=== PATIENT | female | born 1965 | race Caucasian/White ===

== ENCOUNTER 2020-08-07 10:12 | Inpatient (IN) | payer MEDICAID ==
[2020-08-02 16:40] LABS: BASOPHILS # (AUTO) 0.1 X10'3 (0-0.2); BASOPHILS % (AUTO) 1.1 % (0-1); EOSINOPHILS # (AUTO) 0.2 X10'3 (0-0.9); EOSINOPHILS % (AUTO) 2.4 % (0-6); LYMPHOCYTES # (AUTO) 1.4 X10'3 (1.1-4.8); LYMPHOCYTES % (AUTO) 21.3 % (21-51); MEAN CORPUSCULAR HEMOGLOBIN 29.2 PG (27.0-31.0); MEAN CORPUSCULAR HGB CONC 33.3 g/dL (33.0-36.5); MEAN CORPUSCULAR VOLUME 87.7 FL (78-98); MEAN PLATELET VOLUME 6.8 FL (7.4-10.4); MONOCYTES # (AUTO) 0.6 X10'3 (0-0.9); MONOCYTES % (AUTO) 9.2 % (2-12); NEUTROPHILS # (AUTO) 4.3 X10'3 (1.8-7.7); PRE OP HEMATOCRIT 42.8 % (35.0-45.0); PRE OP HEMOGLOBIN 14.2 g/dL (12.0-16.0); PRE OP PLATELET COUNT 378 X10'3 (140-440); RED BLOOD COUNT 4.88 X10'6 (4.20-5.60); RED CELL DISTRIBUTION WIDTH 13.8 % (11.5-14.5)
[2020-08-02 16:46] LABS: PRE OP PROTIME 10.7 SECONDS (9.0-12.0)
[2020-08-02 16:47] LABS: ALBUMIN 4.1 G/DL (3.4-5.0); ALKALINE PHOSPHATASE 93 IU/L (46-116); BLOOD UREA NITROGEN 18 MG/DL (7-18); BUN/CREATININE RATIO 24.3 (6.6-38.0); CALCIUM 10.4 MG/DL (8.5-10.1); CHLORIDE 105 MMOL/L (99-107); CREATININE 0.74 MG/DL (0.40-0.90); PRE OP ALT 23 U/L (30-65); PRE OP ANION GAP 9 (8-16); PRE OP AST 16 U/L (10-37); PRE OP BILIRUB, TOTAL 0.2 MG/DL (0.0-1.0); PRE OP GLUCOSE 98 MG/DL (70-104); PRE OP POTASSIUM 4.2 MMOL/L (3.4-5.1); PRE OP SODIUM 142 MMOL/L (135-145); TOTAL CARBON DIOXIDE 28.5 MMOL/L (24-32); TOTAL PROTEIN 8.4 G/DL (6.4-8.2); eGFR 82 ML/MIN
[2020-08-07] VITALS (24 sets, daily range): BP systolic 90–127; BP diastolic 57–85
[~2020-08-07] VITALS: Ht 177.8 cm; Wt 68.0 kg
[2020-08-07] MEDS: ceFAZolin/D5W- 1GM premix 50 ML IV SCH ×3 (08:00→20:05)
[~2020-08-07 10:12] MED LIST: HYDROmorphone 1 mg/ml syringe IV PRN; HYDROmorphone inj. 0.5 MG/0.5 ML DISP.SYRIN IV PRN; TRAM50TA2 PO; VANCOMYCIN INJ 1000 MG in NORMAL SALINE 250ml IV.SOLN IV ONE; acetaminophen 325mg tablet PO ONE; acetaminophen 325mg tablet PO PRN; bisacodyl 10mg suppository rectal RC PRN; ceFAZolin 2gm in dextrose, iso 50 ML IV ONE; celeCOXIB 100mg capsule PO ONE; diphenhydrAMINE 25mg capsule PO PRN; famotidine 20mg tablet PO ONE; gabapentin 300mg capsule PO ONE; magnesium hydroxide 30ml (MOM) UD suspension PO PRN; metoclopramide 5 mg/ml inj IV ONE; ondansetron/PF 4mg/2ml inj IV PRN; oxyCODONE SR 10mg (sust. release) tab -2 tabs (20mg) PO ONE; tranexamic acid 1gm/0.7% sal. 100 ML IV ONE; vancomycin/NS 1 GM ADD-VANTAGE 250 ML IV SCH
[2020-08-07] MEDS: ringers solution, lacted 1,000 ML IV SCH ×4 (11:15→17:47)
[2020-08-07] MEDS ORDERED: vancomycin 1,000mg inj ONE (11:54)
[2020-08-07] MEDS ORDERED: fentaNYL/PF 50MCG/1 ML 2ML syringe ONE (12:25)
[2020-08-07] MEDS ORDERED: MIDAZolam 5mg/5ml vial ONE (12:39)
[2020-08-07] MEDS ORDERED: ketorolac trometh. 30mg/ml inj. ONE (12:45)
[2020-08-07] MEDS ORDERED: epiNEPHrine 1 mg/ml inj ONE (12:47)
[2020-08-07] MEDS ORDERED: cloNIDine hcl/PF 100mcg/ml inj ONE (12:47)
[2020-08-07] MEDS ORDERED: ROPIVAcaine 0.5% (5mg/ml) 30ml vial ONE ×2 (12:48→12:53)
[2020-08-07] MEDS ORDERED: LIDOcaine 1%/PF 5ML 10 MG/ML VIAL ONE (13:35)
[2020-08-07] MEDS ORDERED: diphenhydrAMINE 50 mg/ml inj ONE (13:35)
[2020-08-07] MEDS ORDERED: propofol inj 20 ML IV ONE (13:35)
[2020-08-07] MEDS ORDERED: ringers solution, lacted 1,000 ML IV SCH (13:40)
[2020-08-07] MEDS ORDERED: proCHLORperazine 10 MG/2 ml inj IV PRN (13:40)
[2020-08-07] MEDS ORDERED: morphine 4 MG/ML inj SYRINge IV PRN (13:40)
[2020-08-07] MEDS ORDERED: ondansetron/PF 4mg/2ml inj IV PRN (13:40)
[2020-08-07] MEDS ORDERED: morphine 2 MG/ML inj. syringe IV PRN (13:40)
[2020-08-07] MEDS ORDERED: meperidine/PF 25mg/ml syringe IV PRN ×3 (13:40)
[2020-08-07] MEDS ORDERED: meperidine/PF 25mg/ml syringe ONE (13:58)
--- NOTE | 2020-08-07 14:05 | NUR ---
ADMITTED TO PACU FROM OR ACCOMPANIED BY ANESTHESIA. INTIAL PHYSICAL ASSESSMENT DONE AND RECORDED. REPORT RECEIVED FROM ANESTHESIA.
--- NOTE | 2020-08-07 16:20 | NUR ---
PACU DISCHARGE CRITERIA MET, REPORT GIVEN TO FLOOR. DENIES PAIN OR DISCOMFORT, TRANSFERRED TO ROOM IN STABLE GOOD CONDITION.
[2020-08-07] MEDS: HYDROcodone/acetaminophen 10/325mg tab PO PRN (16:59)
[2020-08-07] MEDS ORDERED: tranexamic acid 1gm/0.7% sal. 100 ML IV ONE (17:00)
--- NOTE | 2020-08-07 19:24 | NUR ---
Problems reprioritized. Patient report given, questions answered & plan of care reviewed with Karlos JUAN.
[2020-08-07] MEDS: sennosides 8.6mg tablet PO SCH (19:32)
[2020-08-07] MEDS: potassium cl 20mEq in 1/2 NS 1,000 ML IV SCH ×3 (19:33→23:00)
[2020-08-07] MEDS: gabapentin 300mg capsule PO SCH (20:05)
[2020-08-07] MEDS: ascorbic acid 500mg tablet PO SCH (20:05)
--- NOTE | 2020-08-07 20:56 | NUR ---
pt req to wait for pain meds and try gabapentin first
--- NOTE | 2020-08-07 21:25 | NUR ---
ambulated to BR. pt did very well. knee brace intact. pt feels that left leg is now shorter than right leg. will mention to in am.
[2020-08-08] MEDS: HYDROcodone/acetaminophen 10/325mg tab PO PRN ×4 (00:19→19:29)
[2020-08-08] MEDS: potassium cl 20mEq in 1/2 NS 1,000 ML IV SCH ×3 (00:20→21:14)
--- NOTE | 2020-08-08 00:31 | NUR ---
pt has walker, 2 steps into bedroom. living with roommate who has dog and 4 year old and "clutter" in [place]. requesting rehab - educated on qualifications - pt ok with going home if needed, not sure if home PT or home health is availbale in [place].
[2020-08-08] MEDS: ceFAZolin/D5W- 1GM premix 50 ML IV SCH (03:35)
[2020-08-08 04:00] VITALS: BP 99/58
--- NOTE | 2020-08-08 06:23 | NUR ---
reported to days. noted pt ready to work with PT.
--- NOTE | 2020-08-08 06:34 | NUR ---
Patient in room [facility]. I have received report from AKBAR JUAN and had the opportunity to ask questions and assume patient care.
[2020-08-08 07:04] LABS: BASOPHILS % (AUTO) 0.5 % (0-1); EOSINOPHILS # (AUTO) 0.2 X10'3 (0-0.9); EOSINOPHILS % (AUTO) 2.4 % (0-6); HEMOGLOBIN 11.4 g/dl (12.0-16.0); LYMPHOCYTES # (AUTO) 1.3 X10'3 (1.1-4.8); LYMPHOCYTES % (AUTO) 17.5 % (21-51); MEAN CORPUSCULAR HEMOGLOBIN 29.5 PG (27.0-31.0); MEAN CORPUSCULAR HGB CONC 33.5 g/dL (33.0-36.5); MEAN CORPUSCULAR VOLUME 88.2 FL (78-98); MEAN PLATELET VOLUME 7.1 FL (7.4-10.4); MONOCYTES # (AUTO) 0.8 X10'3 (0-0.9); MONOCYTES % (AUTO) 11.3 % (2-12); NEUTROPHILS % (AUTO) 68.3 % (42-75); PLATELET COUNT 282 X10'3 (140-440); RED BLOOD COUNT 3.86 X10'6 (4.20-5.60); RED CELL DISTRIBUTION WIDTH 14.2 % (11.5-14.5); WHITE BLOOD COUNT 7.3 X10'3 (4.5-11.0)
[2020-08-08 07:57] LABS: ANION GAP 6 (8-16); CHLORIDE 108 MMOL/L (99-107); POTASSIUM 4.3 MMOL/L (3.5-5.1); SODIUM 143 MMOL/L (135-145); TOTAL CARBON DIOXIDE 29.4 MMOL/L (24-32)
[2020-08-08 08:00] VITALS: BP 115/70
[2020-08-08] MEDS: ascorbic acid 500mg tablet PO SCH ×2 (09:32→21:06)
[2020-08-08] MEDS: gabapentin 300mg capsule PO SCH ×3 (09:33→21:06)
[2020-08-08] MEDS: multivitamins, therapeutics tablet PO SCH (09:33)
[2020-08-08] MEDS: aspirin 325mg tablet PO SCH (09:39)
[2020-08-08 11:00] VITALS: BP 112/75
--- NOTE | 2020-08-08 16:00 | NUR ---
Joint Replacement Consult: Pt seen by LES for written/verbal high protein ed w/ RD contact information s/p L CITLALLI. Pt is agreeable to [facility]; notified. To provide initial assessment on above date. Addendum: 08/08/20 at [address] Amended: Links added.
--- NOTE | 2020-08-08 18:24 | NUR ---
Problems reprioritized. Patient report given, questions answered & plan of care reviewed with MADISON JUAN.
[2020-08-08 20:00] VITALS: BP 121/70
[2020-08-08] MEDS: celeCOXIB 100mg capsule PO SCH (21:05)
[2020-08-08] MEDS: sennosides 8.6mg tablet PO SCH (21:06)
[2020-08-09] VITALS: BP 101/61
[2020-08-09] MEDS: HYDROcodone/acetaminophen 10/325mg tab PO PRN ×5 (01:16→20:10)
--- NOTE | 2020-08-09 06:58 | NUR ---
Patient in room [facility]. I have received report from Sarah JUAN and had the opportunity to ask questions and assume patient care.
[2020-08-09 07:12] LABS: BASOPHILS % (AUTO) 0.5 % (0-1); EOSINOPHILS # (AUTO) 0.2 X10'3 (0-0.9); EOSINOPHILS % (AUTO) 2.8 % (0-6); HEMATOCRIT 35.3 % (35.0-45.0); HEMOGLOBIN 11.8 g/dl (12.0-16.0); LYMPHOCYTES # (AUTO) 1.6 X10'3 (1.1-4.8); MEAN CORPUSCULAR HEMOGLOBIN 29.4 PG (27.0-31.0); MEAN CORPUSCULAR HGB CONC 33.5 g/dL (33.0-36.5); MEAN CORPUSCULAR VOLUME 87.7 FL (78-98); MEAN PLATELET VOLUME 7.5 FL (7.4-10.4); MONOCYTES # (AUTO) 0.9 X10'3 (0-0.9); MONOCYTES % (AUTO) 11.1 % (2-12); NEUTROPHILS # (AUTO) 5.6 X10'3 (1.8-7.7); NEUTROPHILS % (AUTO) 66.6 % (42-75); PLATELET COUNT 279 X10'3 (140-440); RED BLOOD COUNT 4.03 X10'6 (4.20-5.60); RED CELL DISTRIBUTION WIDTH 13.7 % (11.5-14.5); WHITE BLOOD COUNT 8.5 X10'3 (4.5-11.0)
[2020-08-09] MEDS: JUVEN Smoothie Arginine/Glut./Ca2+Bmb (Juven 19.3pkt) 240ml cup PO SCH ×2 (07:30→12:30)
[2020-08-09 08:00] VITALS: BP 99/59
[2020-08-09] MEDS: ascorbic acid 500mg tablet PO SCH (08:00)
[2020-08-09] MEDS: gabapentin 300mg capsule PO SCH ×2 (08:00→13:00)
[2020-08-09] MEDS: celeCOXIB 100mg capsule PO SCH (08:00)
[2020-08-09] MEDS: multivitamins, therapeutics tablet PO SCH (08:00)
[2020-08-09] MEDS: aspirin 325mg tablet PO SCH (08:30)
[2020-08-09 12:00] VITALS: BP 109/64
[2020-08-09 18:00] VITALS: BP 120/65
--- NOTE | 2020-08-09 18:04 | NUR ---
Problems reprioritized. Patient report given, questions answered & plan of care reviewed with Trinh JUAN.
--- NOTE | 2020-08-09 18:30 | NUR ---
Problems reprioritized. Patient report given, questions answered & plan of care reviewed with Trinh JUAN.
--- NOTE | 2020-08-09 18:40 | NUR ---
Patient in room [facility]. I have received report from Miguelina JUAN and had the opportunity to ask questions and assume patient care.
--- NOTE | 2020-08-09 20:25 | NUR ---
Pt wheeled downstairs by staff member with all of belongings including ice packs, knee brace, IS, extra MICHELLE dressing, FWW. Wallet was given to pt from the hospital safe. Pt was in no distress and receptive to her D/C instructions. Questions were answered and addressed accordingly.
== END 2020-08-09 20:15 | disposition home or self-care (01) | DRG 301 ==
LOC: PAS 10:12 → SUR 3N 10:13
PROVIDERS: ADMIT Orthopaedic Surgery; ATTEND Orthopaedic Surgery
PROC: 0SRB06Z Replacement of Left Hip Joint with Oxidized Zirconium on Polyethylene Synthetic Substitute, Open Approach (ICD-10-PCS; principal; 2020-08-07 12:21)
DX: M16.12 Unilateral primary osteoarthritis, left hip (principal); M87.052 Idiopathic aseptic necrosis of left femur; F32.9 Major depressive disorder, single episode, unspecified; Z86.16 Personal history of COVID-19; Z90.710 Acquired absence of both cervix and uterus; Z79.899 Other long term (current) drug therapy
CPT/HCPCS: 36415; 72170; 80051; 80053; 82948; 85025; 85610; 85730; 86885; 86900; 86901; 87081; 93005; 97110; 97116; 97161; 97530; 97535; A7000; C1776; G0378; J0171; J0690; J0735; J1200; J1885; J2175; J2250; J2704; J2765; J2795; J3010; J3370; J3480; J7120

== ENCOUNTER 2021-10-27 10:01 | Inpatient (IN) | payer MEDICAID ==
[2021-10-27] VITALS (13 sets, daily range): BP systolic 92–156; BP diastolic 55–75
[~2021-10-27] VITALS: Ht 177.8 cm; Wt 65.9 kg
[2021-10-27] MEDS ORDERED: NO HOME MEDS (10:24)
[2021-10-27] MEDS ORDERED: morphine 4 MG/ML inj SYRINge IV ONE ×2 (11:30→13:25)
[2021-10-27] MEDS ORDERED: cloNIDine hcl/PF 100mcg/ml inj ONE (14:02)
[2021-10-27] MEDS ORDERED: sevoflurane 250ml liquid IH ONE (14:03)
[2021-10-27] MEDS ORDERED: magnesium Cl slow-release 64mg tablet PO PRN (14:05)
[2021-10-27] MEDS ORDERED: mag hydrox/Alum hydrox/simeth 30ml oral suspension PO PRN (14:05)
[2021-10-27] MEDS ORDERED: potassium CL 10mEq/100ml bag 100 ML IV PRN (14:05)
[2021-10-27] MEDS ORDERED: POTASSIUM BICARB 20meq eff tab 20 MEQ TABLET.EFF PO PRN ×2 (14:05)
[2021-10-27] MEDS ORDERED: magnesium 2GM in 50ml NS 50 ML IV PRN (14:05)
[2021-10-27] MEDS ORDERED: magnesium hydroxide 30ml (MOM) UD suspension PO PRN (14:05)
[2021-10-27] MEDS ORDERED: magnesium 4gm in 100ml NS 100 ML IV PRN (14:05)
[2021-10-27] MEDS ORDERED: labetalol 20mg/4ml (5mg/ml) syringe IV PRN (14:05)
[2021-10-27] MEDS ORDERED: meperidine/PF 25mg/ml syringe IV PRN ×3 (14:05)
[2021-10-27] MEDS ORDERED: morphine 4 MG/ML inj SYRINge IV PRN (14:05)
[2021-10-27] MEDS ORDERED: ondansetron/PF 4mg/2ml inj IV PRN ×2 (14:05)
[2021-10-27] MEDS ORDERED: ringers solution, lacted 1,000 ML IV SCH (14:05)
[2021-10-27] MEDS ORDERED: proCHLORperazine 10 MG/2 ml inj IV PRN (14:05)
[2021-10-27] MEDS ORDERED: acetaminophen 325mg tablet PO PRN (14:05)
[2021-10-27] MEDS ORDERED: morphine 2 MG/ML inj. syringe IV PRN ×3 (14:05)
[2021-10-27] MEDS ORDERED: hydrALAZINE 20mg/ml inj. IV PRN (14:05)
[2021-10-27] MEDS ORDERED: acetaminophen 1,000mg/100ml IV 100 ML IV PRN (14:05)
[2021-10-27 14:07] LABS: APTT 26 SECONDS (22-32)
[2021-10-27] MEDS ORDERED: fentaNYL /PF 50mcg/ml 5ml ampule ONE (14:10)
[2021-10-27] MEDS ORDERED: midazolam 1 mg/ML 2ml injection ONE (14:10)
[2021-10-27 14:12] LABS: ALANINE AMINOTRANSFERASE 18 U/L (12-78); ALBUMIN 3.7 G/DL (3.4-5.0); ALKALINE PHOSPHATASE 127 IU/L (46-116); ANION GAP 7 (8-16); ASPARTATE AMINO TRANSFERASE 15 U/L (10-37); BILIRUBIN,TOTAL 0.5 MG/DL (0.1-1.0); BLOOD UREA NITROGEN 11 MG/DL (7-18); BUN/CREATININE RATIO 14.7 (6.6-38.0); CALCIUM 9.6 MG/DL (8.5-10.1); CHLORIDE 105 MMOL/L (99-107); CREATININE 0.75 MG/DL (0.40-0.90); GLUCOSE 90 MG/DL (70-104); MAGNESIUM 1.7 MG/DL (1.5-2.4); POTASSIUM 3.8 MMOL/L (3.5-5.1); SODIUM 139 MMOL/L (135-145); TOTAL CARBON DIOXIDE 26.6 MMOL/L (24-32); TOTAL PROTEIN 7.3 G/DL (6.4-8.2); eGFR 80 ML/MIN
[2021-10-27 14:13] LABS: BASOPHILS % (AUTO) 0.5 % (0-1); EOSINOPHILS % (AUTO) 0.2 % (0-6); HEMATOCRIT 43.1 % (35.0-45.0); HEMOGLOBIN 14.4 g/dl (12.0-16.0); LYMPHOCYTES # (AUTO) 1.1 X10'3 (1.1-4.8); LYMPHOCYTES % (AUTO) 12.9 % (21-51); MEAN CORPUSCULAR HEMOGLOBIN 28.4 PG (27.0-31.0); MEAN CORPUSCULAR HGB CONC 33.3 g/dL (33.0-36.5); MEAN CORPUSCULAR VOLUME 85.3 FL (78-98); MEAN PLATELET VOLUME 7.2 FL (7.4-10.4); MONOCYTES # (AUTO) 0.6 X10'3 (0-0.9); MONOCYTES % (AUTO) 6.4 % (2-12); NEUTROPHILS # (AUTO) 6.9 X10'3 (1.8-7.7); PLATELET COUNT 293 X10'3 (140-440); RED BLOOD COUNT 5.05 X10'6 (4.20-5.60); RED CELL DISTRIBUTION WIDTH 14.3 % (11.5-14.5); WHITE BLOOD COUNT 8.7 X10'3 (4.5-11.0)
[2021-10-27] MEDS ORDERED: ROPIVAcaine 0.5% (5mg/ml) 30ml vial ONE (14:58)
[2021-10-27] MEDS ORDERED: ceFAZolin 1000mg inj ONE ×2 (14:58)
[2021-10-27] MEDS ORDERED: 0.9 % SODIUM CHLORIDE 10 ML VIAL ONE ×2 (14:58)
[2021-10-27] MEDS ORDERED: LIDOcaine 2% (20mg/ml) 5ml vial ONE (14:58)
[2021-10-27] MEDS ORDERED: propofol inj 20 ML IV ONE (14:58)
[2021-10-27] MEDS ORDERED: dexamethasone sod phosphate 4mg/ml inj. ONE (14:59)
[2021-10-27] MEDS ORDERED: ondansetron/PF 4mg/2ml inj ONE (14:59)
--- NOTE | 2021-10-27 16:58 | NUR ---
Received from OR via , accompanied by Anesthesiologist DR SOLIS and report given by Anesthesiolgist. PT AWAKE, ALERT, +CM LEFT LE, SLINT WITH DIEGO CD, 18G TO RIGHT AC LR 100MLS/HR,VSS, SCD'S.
--- NOTE | 2021-10-27 17:06 | NUR ---
Patient in room [facility] 4012B. I have received report from DRAKE RUIZ FORM RECOVERY and had the opportunity to ask questions and assume patient care.
--- NOTE | 2021-10-27 17:29 | NUR ---
Report called to receiving nurse. Transferred via BED Belongings . Special Issues communicated to receiving nurse FRANCOIS JUAN. PT IS AWAKE, ALERT, ORIENTED, ABLE TO WIGGLE TOES ON LEFT FOOT, SKIN WARM, MILD PAIN AFTER IV DEMEROL AND TYLENOL, SPINT/DIEGO CD ON LEFT LE, IV PATENT. PT MEETS DISCHARGE CRITERIA.
--- NOTE | 2021-10-27 18:27 | NUR ---
Problems reprioritized. Patient report given, questions answered & plan of care reviewed with DRAKE WALKER.
[2021-10-27] MEDS ORDERED: HYDROcodone/acetaminophen 10/325mg tab PO PRN (19:05)
[2021-10-27] MEDS: docusate sod 100mg capsule PO SCH (20:00)
[2021-10-27] MEDS: K and/or MAG REPLACEMENT MC SCH (20:00)
[2021-10-27] MEDS: normal saline 1000ml 1,000 ML IV SCH (20:49)
[2021-10-27] MEDS ORDERED: HYDROcodone/acetaminophen 5mg/325mg tablet PO PRN (20:50)
[2021-10-28] MEDS: normal saline 1000ml 1,000 ML IV SCH ×3 (00:05→19:26)
[2021-10-28] MEDS: ceFAZolin/D5W- 1GM premix 50 ML IV SCH ×3 (01:14→16:01)
[2021-10-28] MEDS: HYDROcodone/acetaminophen 10/325mg tab PO PRN ×4 (01:53→20:17)
[2021-10-28 02:00] VITALS: BP 97/61
[2021-10-28 06:00] VITALS: BP 95/70
[2021-10-28 07:00] LABS: BASOPHILS % (AUTO) 0 % (0-1); EOSINOPHILS % (AUTO) 0 % (0-6); HEMOGLOBIN 11.9 g/dl (12.0-16.0); LYMPHOCYTES # (AUTO) 0.6 X10'3 (1.1-4.8); LYMPHOCYTES % (AUTO) 5.2 % (21-51); MEAN CORPUSCULAR HEMOGLOBIN 28.1 PG (27.0-31.0); MEAN CORPUSCULAR HGB CONC 33.1 g/dL (33.0-36.5); MEAN CORPUSCULAR VOLUME 84.9 FL (78-98); MEAN PLATELET VOLUME 7.2 FL (7.4-10.4); MONOCYTES # (AUTO) 0.7 X10'3 (0-0.9); MONOCYTES % (AUTO) 6.1 % (2-12); NEUTROPHILS # (AUTO) 9.9 X10'3 (1.8-7.7); NEUTROPHILS % (AUTO) 88.7 % (42-75); PLATELET COUNT 264 X10'3 (140-440); RED BLOOD COUNT 4.24 X10'6 (4.20-5.60); RED CELL DISTRIBUTION WIDTH 14.2 % (11.5-14.5); WHITE BLOOD COUNT 11.2 X10'3 (4.5-11.0)
[2021-10-28 07:26] LABS: ANION GAP 7 (8-16); BLOOD UREA NITROGEN 10 MG/DL (7-18); BUN/CREATININE RATIO 13.3 (6.6-38.0); CALCIUM 8.7 MG/DL (8.5-10.1); CHLORIDE 107 MMOL/L (99-107); CREATININE 0.75 MG/DL (0.40-0.90); GLUCOSE 130 MG/DL (70-104); POTASSIUM 4.3 MMOL/L (3.5-5.1); SODIUM 141 MMOL/L (135-145); TOTAL CARBON DIOXIDE 26.7 MMOL/L (24-32); eGFR 80 ML/MIN
[2021-10-28] MEDS: docusate sod 100mg capsule PO SCH ×2 (08:00→20:00)
[2021-10-28] MEDS: K and/or MAG REPLACEMENT MC SCH ×2 (08:00→20:00)
[2021-10-28] MEDS: enoxaparin 40mg/0.4ml syringe SUBCUT SCH (08:22)
[2021-10-28 10:00] VITALS: BP 98/56
[2021-10-28] MEDS ORDERED: ketorolac tromethamine 15mg/ml inj. IV PRN (11:15)
--- NOTE | 2021-10-28 11:28 | NUR ---
I spoke with Dr. Ferrera about patient pain and said it's okay to order Toradol 30mg q8hr.
[2021-10-28] MEDS: ketorolac trometh. 30mg/ml inj. IV PRN ×2 (11:35→19:26)
[2021-10-28 14:00] VITALS: BP_SYST 152; BP_SYST 90; BP_DIAS 52; BP_DIAS 76
[2021-10-28 18:00] VITALS: BP 103/68
--- NOTE | 2021-10-28 18:32 | NUR ---
Patient in room [facility] 4012B. I have received report from DRAKE WALKER and had the opportunity to ask questions and assume patient care. Addendum: 10/28/21 at 1833 by Анна Andrews RN REPORT TAKEN AT [id number] NOT [id number]
--- NOTE | 2021-10-28 18:33 | NUR ---
Problems reprioritized. Patient report given, questions answered & plan of care reviewed with DRAKE ALEGRE.
[2021-10-28 22:00] VITALS: BP 97/62
[2021-10-29] MEDS: HYDROcodone/acetaminophen 10/325mg tab PO PRN ×3 (04:34→13:17)
[2021-10-29] MEDS: normal saline 1000ml 1,000 ML IV SCH (04:35)
--- NOTE | 2021-10-29 06:15 | NUR ---
Problems reprioritized. Patient report given, questions answered & plan of care reviewed with DRAKE LOUISE.
[2021-10-29 06:30] VITALS: BP 106/75
[2021-10-29 06:34] LABS: ANION GAP 8 (8-16); BLOOD UREA NITROGEN 13 MG/DL (7-18); BUN/CREATININE RATIO 17.8 (6.6-38.0); CALCIUM 8.7 MG/DL (8.5-10.1); CHLORIDE 110 MMOL/L (99-107); CREATININE 0.73 MG/DL (0.40-0.90); GLUCOSE 85 MG/DL (70-104); POTASSIUM 3.9 MMOL/L (3.5-5.1); SODIUM 143 MMOL/L (135-145); TOTAL CARBON DIOXIDE 25.1 MMOL/L (24-32); eGFR 83 ML/MIN
[2021-10-29 06:35] LABS: ALBUMIN 2.7 G/DL (3.4-5.0); BASOPHILS % (AUTO) 0.3 % (0-1); EOSINOPHILS # (AUTO) 0.1 X10'3 (0-0.9); EOSINOPHILS % (AUTO) 0.6 % (0-6); HEMATOCRIT 32.9 % (35.0-45.0); LYMPHOCYTES # (AUTO) 2.3 X10'3 (1.1-4.8); LYMPHOCYTES % (AUTO) 25.3 % (21-51); MEAN CORPUSCULAR HEMOGLOBIN 28.8 PG (27.0-31.0); MEAN CORPUSCULAR HGB CONC 33.6 g/dL (33.0-36.5); MEAN CORPUSCULAR VOLUME 85.8 FL (78-98); MEAN PLATELET VOLUME 7.5 FL (7.4-10.4); MONOCYTES # (AUTO) 0.9 X10'3 (0-0.9); MONOCYTES % (AUTO) 10.4 % (2-12); NEUTROPHILS # (AUTO) 5.7 X10'3 (1.8-7.7); NEUTROPHILS % (AUTO) 63.4 % (42-75); PLATELET COUNT 241 X10'3 (140-440); RED BLOOD COUNT 3.83 X10'6 (4.20-5.60); RED CELL DISTRIBUTION WIDTH 14.5 % (11.5-14.5)
--- NOTE | 2021-10-29 07:18 | NUR ---
Patient in room [facility] 4012B. I have received report from DRAKE ALEGRE and had the opportunity to ask questions and assume patient care.
[2021-10-29] MEDS: docusate sod 100mg capsule PO SCH (08:00)
[2021-10-29] MEDS: K and/or MAG REPLACEMENT MC SCH (08:00)
[2021-10-29] MEDS: enoxaparin 40mg/0.4ml syringe SUBCUT SCH (08:47)
[2021-10-29] MEDS: ketorolac trometh. 30mg/ml inj. IV PRN (08:48)
[2021-10-29 10:00] VITALS: BP 98/64
[2021-10-29] MEDS ORDERED: TRAM50TA2 PO (12:37)
[2021-10-29] MEDS ORDERED: ASPI-1 PO ×3 (12:39→16:49)
[2021-10-29 14:00] VITALS: BP 106/67
[2021-10-29] MEDS ORDERED: HYDR-3972 PO ×2 (16:42→16:49)
--- NOTE | 2021-10-29 20:00 | NUR ---
PATIENT STABLE AND APPROPRIATE FOR DISCHARGE, IV TAKEN OUT, TELE REMOVED, EDUCATION GIVEN, NEW MEDS SENT TO PREFERRED PHARMACY BY ORTHO DR/PA, PATIENT GIVEN A WALKER FOR HOME, ALL BELONGINGS SENT WITH PATIENT, PATIENT TAKEN BY WHEELCHAIR TO LOBBY TO AN AWAITING CAR WHERE FRIEND WILL TAKE PATIENT HOME
== END 2021-10-29 16:17 | disposition home or self-care (01) | DRG 313 ==
LOC: ER 10:02 → EDBEDREQTM 12:58 → EDBEDREQSVC 12:58 → UNDOADMIN 14:03 → ORTHO 4S 14:03
PROVIDERS: ADMIT Family Medicine; ATTEND Family Medicine
PROC: 3E0T3BZ Introduction of Anesthetic Agent into Peripheral Nerves and Plexi, Percutaneous Approach (ICD-10-PCS; 2021-10-27)
PROC: 3E0T33Z Introduction of Anti-inflammatory into Peripheral Nerves and Plexi, Percutaneous Approach (ICD-10-PCS; 2021-10-27)
PROC: 0QSH04Z Reposition Left Tibia with Internal Fixation Device, Open Approach (ICD-10-PCS; principal; 2021-10-27 14:06)
DX: S82.292A Other fracture of shaft of left tibia, initial encounter for closed fracture (principal); D64.9 Anemia, unspecified; M19.90 Unspecified osteoarthritis, unspecified site; S82.492A Other fracture of shaft of left fibula, initial encounter for closed fracture; Z20.822 Contact with and (suspected) exposure to COVID-19; W18.39XA Other fall on same level, initial encounter; Y93.01 Activity, walking, marching and hiking; Z96.642 Presence of left artificial hip joint; Y92.89 Other specified places as the place of occurrence of the external cause; Y99.8 Other external cause status
CPT/HCPCS: 36415; 71045; 73600; 73610; 76000; 80048; 80053; 83735; 84132; 85025; 85610; 85730; 86885; 86900; 86901; 87081; 87635; 93005; 97110; 97116; 97161; 97530; 99285; A4618; A6449; A7000; C1713; C9803; G0378; J0131; J0690; J0735; J1100; J1650; J1885; J2175; J2250; J2270; J2405; J2704; J2795; J3010; J3490; J7030; J7120

== ENCOUNTER 2021-11-01 12:44 | Emergency (ER) | payer MEDICAID ==
[~2021-11-01] VITALS: Ht 177.8 cm; Wt 65.9 kg
[~2021-11-01 12:44] MED LIST changes: +ASPI-1 PO; +HYDR-3972 PO; -HYDROmorphone 1 mg/ml syringe IV PRN; -HYDROmorphone inj. 0.5 MG/0.5 ML DISP.SYRIN IV PRN; -TRAM50TA2 PO; -VANCOMYCIN INJ 1000 MG in NORMAL SALINE 250ml IV.SOLN IV ONE; -acetaminophen 325mg tablet PO ONE; -acetaminophen 325mg tablet PO PRN; -bisacodyl 10mg suppository rectal RC PRN; -ceFAZolin 2gm in dextrose, iso 50 ML IV ONE; -celeCOXIB 100mg capsule PO ONE; -diphenhydrAMINE 25mg capsule PO PRN; -famotidine 20mg tablet PO ONE; -gabapentin 300mg capsule PO ONE; -magnesium hydroxide 30ml (MOM) UD suspension PO PRN; -metoclopramide 5 mg/ml inj IV ONE; -ondansetron/PF 4mg/2ml inj IV PRN; -oxyCODONE SR 10mg (sust. release) tab -2 tabs (20mg) PO ONE; -tranexamic acid 1gm/0.7% sal. 100 ML IV ONE; -vancomycin/NS 1 GM ADD-VANTAGE 250 ML IV SCH
[2021-11-01 12:50] VITALS: BP 154/69
== END 2021-11-01 16:58 | disposition home or self-care (01) ==
LOC: ER 12:45
DX: T81.89XA Other complications of procedures, not elsewhere classified, initial encounter (principal); R20.0 Anesthesia of skin; M19.90 Unspecified osteoarthritis, unspecified site; Z79.82 Long term (current) use of aspirin
CPT/HCPCS: 99282

== ENCOUNTER 2023-05-17 06:48 | Emergency (ER) | payer MEDICAID ==
[~2023-05-17] VITALS: Ht 177.8 cm; Wt 72.7 kg
[~2023-05-17 06:48] MED LIST changes: -HYDR-3972 PO
[2023-05-17] MEDS ORDERED: NAPR-56 PO (09:03)
[2023-05-17 19:24] VITALS: BP 138/77; PULSE 79; RESP 18; TEMP 98.2; O2SAT 99
== END 2023-05-17 11:15 | disposition home or self-care (01) ==
LOC: ER 06:48
DX: S82.091A Other fracture of right patella, initial encounter for closed fracture (principal); M19.90 Unspecified osteoarthritis, unspecified site; Z98.890 Other specified postprocedural states; Z79.82 Long term (current) use of aspirin; Z79.899 Other long term (current) drug therapy; W01.0XXA Fall on same level from slipping, tripping and stumbling without subsequent striking against object, initial encounter; Y93.9 Activity, unspecified; Y92.89 Other specified places as the place of occurrence of the external cause; Y99.8 Other external cause status
CPT/HCPCS: 29505; 73562; 99284